=== PATIENT | female | born 1970 | race Caucasian/White ===

== ENCOUNTER → 2025-10-08 12:57 | Outpatient (REF) | payer OTHER, SELFPAY | LOC: MRI 3T 12:57 | PROVIDERS: ATTENDING PHYSICIAN Otolaryngology; FAMILY PHYSICIAN Family Medicine | DX: H92.02 Otalgia, left ear (principal); H93.12 Tinnitus, left ear; R51.9 Headache, unspecified | CPT/HCPCS: 70553; A9575 ==